=== PATIENT | female | born 1985 | race Caucasian/White ===

== ENCOUNTER 2018-02-02 23:57 | Emergency (ER) | payer MEDICAID ==
[~2018-02-02] VITALS: Ht 172.7 cm; Wt 61.5 kg
[2018-02-03 00:13] VITALS: BP 107/63; PULSE 105; RESP 24; TEMP 98.3; O2SAT 100
[2018-02-03] MEDS ORDERED: TRAM50TA PO (02:33)
--- NOTE | 2018-02-03 02:33 | PD ---
HPI Chief Complaint: Skin Problem Time Seen by Provider: 00:52 Travel History International Travel<30 days: No Contact w/Intl Traveler<30days: No Traveled to known affect area: No History of Present Illness HPI Patient had a breast augmentation surgery 4 days ago with the implants below her pectoral muscles today she lifted up her 32 pound child and had a feeling of burning in her right breast underneath the suture line. She has no discharge no blood no serous fluid from the wound there is no decision seen. Patient is supposed to go back 6 days from now to have her Steri-Strips and sutures removed from her plastic surgeon. Patient denies trauma she only said she lifted her child into her car seat today and afterwards felt a burning sensation. This sensation is worse when she stands up PFSH Past Medical History Integumentary: Yes (MRSA) Immunizations Current: Yes ?: Not Past Surgical History Appendectomy: Yes Other Surgery: Yes (BREAST AUG, INNER THIGH RECONSTRUCTION) Social History Alcohol Use: Yes Tobacco Use: No Substance Use: No Allergies-Medications (Allergen,Severity, Reaction): Coded Allergies: No Known Allergies (Unverified , 02/03/18) Reported Meds & Prescriptions Reported Meds & Active Scripts Active Tramadol (Tramadol HCl) 50 Mg Tab 50 Mg PO Q6H PRN Review of Systems Except as stated in HPI: all other systems reviewed are Neg Physical Exam Narrative GENERAL: Nontoxic-appearing SKIN: Warm and dry. HEAD: Atraumatic. Normocephalic. EYES: Pupils equal and round. No scleral icterus. No injection or drainage. ENT: No nasal bleeding or discharge. Mucous membranes pink and moist. NECK: Trachea midline. No JVD. CARDIOVASCULAR: Regular rate and rhythm. Chest Breast exam she has suture lines underneath her breasts bilaterally with sutures covered with Steri-Strips there is no sign of bleeding there is no sign of pus there is no smell of pus and there is no irregularity of the shape bilaterally appeared normal in the same no signs of trauma no signs of hemorrhage or hematoma RESPIRATORY: No accessory muscle use. Clear to auscultation. Breath sounds equal bilaterally. GASTROINTESTINAL: Abdomen soft, non-tender, nondistended. Hepatic and splenic margins not palpable. MUSCULOSKELETAL: Extremities without clubbing, cyanosis, or edema. No obvious deformities. NEUROLOGICAL: Awake and alert. No obvious cranial nerve deficits. Motor grossly within normal limits. Five out of 5 muscle strength in the arms and legs. Normal speech. PSYCHIATRIC: Appropriate mood and affect; insight and judgment normal. Data Data Last Documented VS Vital Signs Date Time Temp Pulse Resp B/P (MAP) Pulse Ox O2 Delivery O2 Flow Rate FiO2 02/03/18 02:42 02/03/18 00:13 98.3 105 24 100 Orders Orders Ed Discharge Order (02/03/18 02:34) MDM Medical Decision Making Medical Screen Exam Complete: Yes Emergency Medical Condition: Yes Differential Diagnosis post operative pain , nerve praxia infection , dishesion scar . other Narrative Course pt has noraml looking scar with no signs or smell of infection , breast symmetric wounds have no dehesion pt having nerve overstimulation to new implant Diagnosis Primary Impression: Postoperative pain Scripts Tramadol (Tramadol) 50 Mg Tab 50 MG PO Q6H Y for PAIN, #10 TAB 0 Refills Prov: Tono Garcia MD 02/03/18 Disposition: 01 DISCHARGE HOME Condition: Good Tono Garcia MD Feb 03, 2018 02:33
== END 2018-02-03 03:06 | disposition home or self-care (01) ==
LOC: NEPC 23:57
DX: G89.18 Other acute postprocedural pain (principal)
CPT/HCPCS: 99283